=== PATIENT | female | born 1985 | race African-American/Black ===

== ENCOUNTER 2020-06-03 17:44 | Emergency (ER) | payer OTHER ==
[~2020-06-03] VITALS: Ht 162.6 cm; Wt 52.2 kg
[2020-06-03 20:46] LABS: ABSOLUTE NEUTROPHILS 4.7 thou/uL (1.4-8.2); BASOPHILS 0.8 % (0.0-2.0); EOSINOPHILS 1.3 % (0.0-3.0); HEMATOCRIT 23.9 % (37.0-47.0); LYMPHOCYTES 29.7 % (24.0-44.0); MCHC 33.5 g/dL (28.0-37.0); MCV 104.3 fL (80.0-100.0); MONOCYTES 11.1 % (1.0-8.0); PLATELET COUNT 361 thou/uL (150-400); POLYS 57.1 % (36.0-66.0); RBC 2.29 mil/uL (4.20-5.00); RDW 17.4 % (10.5-14.5); WBC 8.3 thou/uL (4.0-11.0)
[2020-06-03 20:56] LABS: ABSOLUTE RETIC COUNT 0.0585 10^6/uL; OBSERVED RETIC COUNT 2.56 % (0.6-2.6)
[2020-06-03 20:58] LABS: CALCIUM 8.2 mg/dL (8.5-10.1); CREATININE 0.6 mg/dL (0.6-1.0); POTASSIUM 3.5 mmol/L (3.5-5.1)
[2020-06-03 21:05] LABS: ALBUMIN 3.9 g/dL (3.4-5.0); TOTAL BILIRUBIN 1.8 mg/dL (0.2-1.0); TOTAL PROTEIN 7.8 g/dL (6.4-8.2)
[2020-06-03 21:47] VITALS: BP 129/70
== END 2020-06-03 21:54 | disposition home or self-care (01) ==
LOC: ER 17:44
PROVIDERS: Emergency Medicine
DX: D57.00 Hb-SS disease with crisis, unspecified (principal); Z91.048 Other nonmedicinal substance allergy status

== ENCOUNTER 2020-06-06 11:44 | Emergency (ER) | payer OTHER ==
[~2020-06-06] VITALS: Ht 162.6 cm; Wt 52.2 kg
[2020-06-06 13:25] VITALS: BP 115/76
== END 2020-06-06 13:36 | disposition home or self-care (01) ==
LOC: ER 11:44
DX: D57.00 Hb-SS disease with crisis, unspecified (principal); Z91.048 Other nonmedicinal substance allergy status

== ENCOUNTER 2020-06-07 10:56 | Emergency (ER) | payer OTHER ==
[~2020-06-07] VITALS: Ht 162.6 cm; Wt 52.2 kg
[2020-06-07 12:46] VITALS: BP 102/53
== END 2020-06-07 12:48 | disposition home or self-care (01) ==
LOC: ER 10:56
DX: M79.10 Myalgia, unspecified site (principal); Z91.048 Other nonmedicinal substance allergy status